=== PATIENT | male | born 1975 | race Caucasian/White ===

== ENCOUNTER 2024-03-05 11:15 | Outpatient (CLI) | payer OTHER, SELFPAY | END 2024-03-05 11:16 | disposition home or self-care (01) | PROVIDERS: Visit Provider Family Medicine | DX: Z00.00 Encounter for general adult medical examination without abnormal findings (principal); I10 Essential (primary) hypertension; Z13.6 Encounter for screening for cardiovascular disorders | CPT/HCPCS: 80048; 80061 ==

== ENCOUNTER 2024-04-19 10:00 | Outpatient (CLI) | payer OTHER, SELFPAY | END 2024-04-19 10:01 | disposition home or self-care (01) | LOC: NFLDREF 04-24 06:24 | PROVIDERS: PCP Family Medicine; Referring Provider Family Medicine; Visit Provider Family Medicine | DX: Z11.1 Encounter for screening for respiratory tuberculosis (principal); Z11.59 Encounter for screening for other viral diseases | CPT/HCPCS: 86480; 86658 ==

== ENCOUNTER 2024-04-25 10:34 | Emergency (ER) | payer OTHER, SELFPAY ==
[2024-04-25] VITALS (15 sets, daily range): BP systolic 118–167; BP diastolic 71–107; PULSE 47–64; RESP 18; TEMP 36.6; O2SAT 96–98
--- NOTE | 2024-04-25 11:37 | ED.HA ---
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 Elder notes that he awoke this morning at 0600 hours with a headache in both temples and behind the eyes rating it 7/10. He described it as an aching feeling. He notes at 0720 he took 400 mg of ibuprofen and the headache decreased to a 3/10 but is now inching back up. He notes the headache is now dull and throbbing. He notes that his eyes feel like they are tracking slower than they should. He denies any numbness or tingling of the extremities. He has not recently been ill Elder had called into the clinic because he was very concerned about his blood pressure this morning. Blood pressure prior to arrival was 158/109. He notes normally he is 130s over 85-90. He has been on ramipril for many years. He has never needed an additional medication for blood pressure control. He denied any visual changes nausea or vomiting. He currently notes that his eyes feel heavy. A week ago he did have a sore throat and runny nose but that resolved. He denies any drug use or tobacco use. He does have 1-2 alcoholic drinks in the evenings. He notes that he had some discomfort in his right hamstring but no other complaints. Half sister had a ski mixed stroke at the age of 40. Glioblastoma noted in patient history in chart. Related Data Previous Rx's ?Medication ?Instructions ?Recorded escitalopram oxalate 10 mg tablet 10 mg PO QDAY #90 tabs 03/05/24 ramipril 10 mg capsule 10 mg PO QDAY #90 caps 03/05/24 Allergies Allergy/AdvReac Type Severity Reaction Status Date / Time No Known Drug Allergies Allergy Verified 03/05/24 10:33 Review of Systems Status of ROS: Reports: 10 or more systems reviewed and unremarkable except as noted in History and below Const: Reports: fatigue; Denies: fever or chills Eyes: Denies: change in vision, blurry vision, blind spots or seeing flashes ENMT: Denies: throat pain, neck pain, throat swelling, nasal discharge or nasal congestion Cardio: Denies: chest pain, palpitations, swelling of feet/ankles or shortness of breath with exertion Resp: Denies: shortness of breath or cough GI: Denies: abdominal pain or nausea : Denies: painful urination Musculo: Denies: back pain or neck pain Neuro: Reports: headache; Denies: numbness in extremities or weakness in extremities Endo: Reports: fatigue Allergy/Immuno: Denies: throat swelling [facility]SH [facility] Surgical History Status post vasectomy ?Z98.52 - Vasectomy status (ICD-10) Social History Little interest or pleasure in doing things: not at all Feeling down, depressed, or hopeless: not at all Exam Narrative: Exam Narrative: Patient is alert and oriented. No acute distress. External ears eyes nose clear. EOM is full. Pupils are equal and reactive. Face symmetrical. Oral cavity with moist mucous membranes. Neck is supple without lymphadenopathy. Heart with regular rate and rhythm. Lungs are clear bilaterally. Abdomen soft. Lower extremities without edema. Able to move all extremities without difficulty. Const: Vital Signs, click to edit/add: Vital Signs - 24 hr 04/25/24 10:49 04/25/24 12:16 04/25/24 12:46 Temperature 97.8 F Pulse Rate 64 58 L Pulse Rate [Pulse Oximeter] 59 L Respiratory Rate 18 Blood Pressure [Ri ght Upper Arm] 167/101 H Pulse Oximetry 98 97 97 Oxygen Delivery Me thod Room Air Documenting provider has reviewed patient's vital signs: yes Course Course ED Course: Differential diagnosis includes but is not limited to atypical headache, tension headache, acute head bleed, hypertension, anxiety. Will place IV, give fluids as well as Reglan 10 mg IV piggyback, Benadryl 25 mg IV. Will obtain head CT. Will also test for COVID and strep. Reevaluation(s) Reevaluation #1: COVID and strep negative. Patient notes headache has gone from initially 7/10 to 3/10 with ibuprofen at home. Climbed back to 5/10 here and is now back to a 10/15 with the Reglan and Benpricillal. Will add Toradol [address] is reassuring with no evidence of acute bleed. Reevaluation #2: Patient has had resolution of his headache. Blood pressure has normalized to 118 systolic. Vital Signs Vital signs: Initial Vital Signs Temperature 97.8 F 04/25/24 10:49 Temperature Source Temporal Artery Scan 04/25/24 10:49 Pulse Rate 59 L 04/25/24 10:49 Pulse Rhythm Regular 04/25/24 10:49 Respiratory Rate 18 04/25/24 10:49 Blood Pressure 167/101 H 04/25/24 10:49 Blood Pressure Mean 123 H 04/25/24 10:49 Blood Pressure Position Sitting 04/25/24 10:49 Pulse Oximetry 98 04/25/24 10:49 Oxygen Delivery Method Room Air 04/25/24 10:49 Vital Signs Temperature 97.8 F 04/25/24 10:49 Pulse Rate 59 L 04/25/24 10:49 Respiratory Rate 18 04/25/24 10:49 Blood Pressure 167/101 H 04/25/24 10:49 Pulse Oximetry 98 04/25/24 10:49 Oxygen Delivery Method Room Air 04/25/24 10:49 Temperature 97.8 F 04/25/24 10:49 Pulse Rate 58 L 04/25/24 12:46 Respiratory Rate 18 04/25/24 10:49 Blood Pressure 167/101 H 04/25/24 10:49 Pulse Oximetry 97 04/25/24 12:46 Oxygen Delivery Method Room Air 04/25/24 10:49 Medications Administered Medications: Discontinued Medications Generic Name Dose Route Start Last Admin Trade Name Freq PRN Reason Stop Dose Admin Diphenhydramine HCl 25 mg 04/25/24 12:25 04/25/24 13:24 Diphenhydramine 50 Mg/Ml Inj IVP 04/25/24 12:26 25 mg ONCE ONE Administration Sodium Chloride 1,000 mls @ 1,000 mls/hr 04/25/24 12:25 04/25/24 14:20 0.9 % Sodium Chloride 1000 Ml IV 04/25/24 13:24 Infused .Q1H TAMAR Infusion Metoclopramide HCl 10 mg/ 102 mls @ 306 mls/hr 04/25/24 12:25 04/25/24 13:52 Sodium Chloride IVPB 04/25/24 12:26 Infused ONCE ONE Infusion Ketorolac Tromethamine 15 mg 04/25/24 14:01 04/25/24 14:19 Ketorolac 15 Mg/Ml Inj IVP 04/25/24 14:02 15 mg ONCE ONE Administration MDM - Headache MDM Narrative Medical decision making narrative: 1. Headache-patient has no prior history of migraines. Today's headache initially improved with ibuprofen at home and then in the ED with our migraine cocktail of Reglan, Benadryl. After CT was noted to be negative patient given Toradol and he has now had resolution of his headache. At this time will allow patient to discharge home. Suggest resting and pushing fluids. May use ibuprofen as needed. 2. Hypertension-blood pressure is now normalized after treatment of headache. He is feeling much better. Would suggest continued monitoring and follow-up with his primary MD if he notices that blood pressures continue to rise. He may need a 2nd blood pressure medication. Again at this time systolic blood pressure is now 118 and normal. 3. Disposition-home at this time. Recommend no driving as Reglan and Benadryl certainly causes drowsiness. Return to the emergency room for new symptoms, worsening symptoms and as needed. Medical Records Attestation: I reviewed the patient's medical records. Lab Data Attestation: I reviewed the patient's lab results. Labs: Lab Results 04/25/24 Range/Units 12:40 SARS-CoV-2 (PCR) Negative SARS-CoV-2 (Negative) Group A Strep DNA NOT DETECTED (Not Detectd) Imaging Data CT scan - head: Attestation: I have reviewed the pertinent imaging results. My impression: I do not note any acute bleed. Radiologist's impression: The brain is normal in attenuation with preserved prieto-white matter differentiation. No hydrocephalus. No mass or mass effect. No intracranial hemorrhage. Bilateral symmetrical prominence of the subarachnoid space surrounding the anterior convexities of the frontal lobes consistent with mild atrophy. The bridging cortical veins are present adjacent to the inner table of the cranial vault, indicating no evidence of a subdural collection. Intact skull base and cranial vault. Visualized orbits are without significant incidental findings. Right posterior maxillary antral retention cyst. The visualized paranasal sinuses and mastoid air cells are otherwise clear. IMPRESSION: No acute findings. Mild bilateral symmetric frontal lobe atrophy. Right maxillary retention cyst. Otherwise clear paranasal sinuses. Discharge Plan Discharge Clinical Impression: Headache Qualifiers: Headache type: unspecified Headache chronicity pattern: acute headache Intractability: not intractable Qualified Code(s): R51.9 - Headache, unspecified Patient Disposition: Home, Self-Care Condition: Improved Additional Instructions: Rest, push fluids. If you develop cough, sore throat or runny nose I would suggest retesting for COVID. Continue to monitor your blood pressure. Follow-up with your primary MD as needed. Prescriptions: No Action ramipril 10 mg capsule 10 mg PO QDAY Qty: 90 3RF escitalopram oxalate 10 mg tablet 10 mg PO QDAY Qty: 90 3RF Follow Up/Referrals: Christo Erwin MD [Primary Care Provider] - Stand Alone Forms: [employer] Info Instructions
--- NOTE | 2024-04-25 12:25 | CRLHL7_ITS ---
For Patients: As a result of the Century Cures Act, medical imaging exams and procedure reports are released immediately into your electronic medical record. You may view this report before your referring provider. If you have questions, please contact your health care provider. INDICATION: Acute retro-orbital headache. COMPARISON: None available. TECHNIQUE: CT of the head without intravenous contrast. Please note that all CT scans at this facility use dose modulation, iterative reconstruction, and/or weight-based dosing when appropriate to reduce radiation dose to as low as reasonably achievable. FINDINGS: The brain is normal in attenuation with preserved prieto-white matter differentiation. No hydrocephalus. No mass or mass effect. No intracranial hemorrhage. Bilateral symmetrical prominence of the subarachnoid space surrounding the anterior convexities of the frontal lobes consistent with mild atrophy. The bridging cortical veins are present adjacent to the inner table of the cranial vault, indicating no evidence of a subdural collection. Intact skull base and cranial vault. Visualized orbits are without significant incidental findings. Right posterior maxillary antral retention cyst. The visualized paranasal sinuses and mastoid air cells are otherwise clear. IMPRESSION: No acute findings. Mild bilateral symmetric frontal lobe atrophy. Right maxillary retention cyst. Otherwise clear paranasal sinuses. Please note that all CT scans at this facility use dose modulation, iterative reconstruction, and/or weight-based dosing when appropriate to reduce radiation dose to as low as reasonably achievable. Dictated by Sriram Schroeder MD @ 04/25/2024 1:26:39 PM (Electronically Signed)
[2024-04-25 13:17] LABS: Strep A DNA Probe* NOT DETECTED (Not Detectd)
[2024-04-25 13:22] LABS: SARS PCR* Negative SARS-CoV-2 (Negative)
[2024-04-25] MEDS: 0.9 % SODIUM CHLORIDE 1000 ml 1,000 ML IV (13:24)
[2024-04-25] MEDS: diphenhydrAMINE 50 MG/ML inj 25 MG IVP (13:24)
[2024-04-25] MEDS: METOCLOPRAMIDE HCL 10 MG in 0.9 % SODIUM CHLORIDE 100 ml 100 ML 306 MG IVPB (13:26)
[2024-04-25] MEDS: KETOROLAC 15 MG/ML inj IVP (14:19)
== END 2024-04-25 14:51 | disposition home or self-care (01) ==
PROVIDERS: Emergency Provider Family Medicine; PCP Family Medicine
DX: R51.9 Headache, unspecified (principal)
CPT/HCPCS: 70450; 87635; 87651; 96365; 96375; 99284; 99285; J1200; J1885; J2765; J7030

== ENCOUNTER 2025-03-19 16:04 | Outpatient (CLI) | payer OTHER, SELFPAY | END 2025-03-19 16:05 | disposition home or self-care (01) | LOC: LKVREF 16:04 | PROVIDERS: PCP Family Medicine | DX: N48.89 Other specified disorders of penis (principal) | CPT/HCPCS: 87070; 87076 ==